=== PATIENT | female | born 1970 | race African-American/Black ===

== ENCOUNTER 2019-04-13 07:19 | Outpatient (CLI) | payer BC ==
--- NOTE | 2019-04-13 09:09 | ULT ---
HEPATIC DOPPLER ULTRASOUND: DATE: 04/13/2019. COMPARISON: None. HISTORY: Abnormal liver function tests. TECHNIQUE: Multiplanar grayscale sonographic imaging of the abdomen obtained. The hepatic and splenic vasculatur e is assessed with color flow and spectral analysis. FINDINGS: Imaged pancreas is unremarkable. The tail of the pancreas is obscured by bowel gas. Imaged IVC and aorta appear within normal limits. The hepatic parenchyma is heterogeneous and echogenic, suggesting hepatocellular disease, such as malcolm atosis. The common bile duct measures 4 mm, within normal limits. The left portal vein, left hepatic vein, middle hepatic vein, right portal vein, right hepatic vein, hepatic artery, main portal vein, splenic artery, and splenic vein are patent and demonstrate appropriate waveforms. The gallbladder demonstrates normal wall thickness with no stones or pericholecystic fluid. Spleen measures 9.8 cm, within normal limits. IMPRESSION: Unremarkable hepatic Doppler ultrasound. Transcribed Date/Time: 04/13/2019 9:16 AM
== END 2019-04-13 07:20 | disposition home or self-care (01) ==
LOC: SCSULT 07:19
PROVIDERS: ATTEND Internal Medicine Gastroenterology
DX: R94.5 Abnormal results of liver function studies (principal); K92.1 Melena; G47.30 Sleep apnea, unspecified
CPT/HCPCS: 76705

== ENCOUNTER 2019-04-13 12:23 | Day surgery (SDC) | payer BC ==
[2019-04-12 12:43] VITALS: BMI 52.9
[2019-04-13] MEDS ORDERED: Midazolam HCl 2 mg/2 ml Vial ONE (13:02)
[2019-04-13] MEDS ORDERED: Fentanyl 100 MCG/2 ML VIAL ONE (13:06)
--- NOTE | 2019-04-13 19:48 | OP ---
DATE OF PROCEDURE: 04/13/2019 PROCEDURE PERFORMED: Colonoscopy. PREPROCEDURE DIAGNOSES: 1. Rectal outlet bleeding. 2. Colon screening. POSTPROCEDURE DIAGNOSES: 1. Exam to cecum; good bowel preparation. 2. Severely redundant transverse colon. 3. No obvious polyp or neoplasm identified. 4. No active bleeding seen. 5. Limited exam of the transverse colon due to finding above. 6. Moderately large external hemorrhoids, not actively bleeding. 7. Solitary medium size sigmoid diverticulum. 8. Otherwise normal colonoscopy. DESCRIPTION OF PROCEDURE: Written informed consent was obtained. The patient was brought to the endoscopy suite. Total intravenous anesthesia was administered by Dr. Matilde Massey. The patient was placed in the left lateral decubitus position. A digital rectal exam was performed that revealed [id number] external hemorrhoids that were not thrombosed nor actively bleeding. A Pentax video colonoscope was inserted through the anal canal and advanced under direct visualization to the cecum. Position in the cecum was verified by identification of the appendiceal orifice and the ileocecal valve. The quality of the bowel preparation was good. Each colon segment was carefully examined as the colonoscope was withdrawn from the cecum. Vascular pattern and haustral folds appeared normal. The transverse colon was severely redundant, which somewhat limited visualization of the transverse colon due to looping. No polyp, neoplasm, or active bleeding site was identified. In the rectum, a retroflexed view demonstrated no internal hemorrhoids. The colon was decompressed as the colonoscope was completely removed from the patient. She was transferred to the Day Stay surgery area for postprocedure monitoring. There were no immediate complications. RECOMMENDATIONS: 1. Resume previous medications. 2. High-fiber diet with recommendation to consume at least 25 to 30 g of fiber daily. 3. Sitz baths t.i.d. p.r.n. 4. Preparation H cream or Analpram HC cream t.i.d. p.r.n. 5. If hemorrhoids continue to bleed, we would recommend surgical consultation. 6. Repeat colonoscopy in 10 years for purposes of colon cancer screening. Job ID: [id number]
== END 2019-04-13 15:00 | disposition home or self-care (01) ==
LOC: SDC 12:23
PROVIDERS: ATTEND Internal Medicine Gastroenterology
DX: K57.31 Diverticulosis of large intestine without perforation or abscess with bleeding (principal); K64.4 Residual hemorrhoidal skin tags; Q43.8 Other specified congenital malformations of intestine; I10 Essential (primary) hypertension; G47.30 Sleep apnea, unspecified; E66.3 Overweight; Z68.42 Body mass index [BMI] 45.0-49.9, adult; Z79.899 Other long term (current) drug therapy; Z91.013 Allergy to seafood; Z91.041 Radiographic dye allergy status; R94.5 Abnormal results of liver function studies; K92.1 Melena
CPT/HCPCS: 76705; J2250; J3010

== ENCOUNTER 2024-07-14 07:48 | Inpatient (IN) | payer BC ==
[2024-07-14 08:13] VITALS: BMI 53.8
[2024-07-14] MEDS ORDERED: Calcium Carbonate 500 MG ChewTAB PO PRN (08:31)
[2024-07-14] MEDS ORDERED: Senokot S 8.6-50 MG TAB PO PRN (08:31)
[2024-07-14] MEDS ORDERED: Ondansetron ODT 4 MG TAB PO PRN (08:35)
[2024-07-14] MEDS ORDERED: hydrALAZINE 20 MG/ML VIAL SLOW IVP PRN (08:45)
[2024-07-14 09:40] LABS: #Basophils Less than 0.03 10x3/uL (0.0-0.2); #Eosinophils Less than 0.03 10x3/uL (0.0-0.7); %Basophils 0.3 % (0.0-1.0); %Eosinophils 0.3 % (0.0-10.0); %Lymphocytes 37.9 % (21.0-51.0); %Monocytes 17.4 % (0.0-10.0); %Neutrophils 43.8 % (42.0-75.0); Hematocrit 37.6 % (36.0-47.0); Hemoglobin 12.4 g/dL (12.0-16.0); Mean Corpuscular Hemoglobin 28.6 pg (27.0-31.0); Mean Corpuscular Volume 86.8 fL (78.0-98.0); Mean Platelet Volume 9.9 fL (7.4-10.4); Platelet Count 195 10x3/uL (130-400); RBC Distribution Width 15.8 % (11.5-14.5); Red Blood Cell (RBC) Count 4.33 mill/uL (4.20-5.40)
[2024-07-14] MEDS: Enoxaparin 40 MG (0.4 mL) SYRINGE SC SCH ×2 (09:58→10:29)
[2024-07-14 09:59] LABS: Anion Gap 14 mmol/L (10-20); BUN (Urea Nitrogen) 10 mg/dL (9.8-20.1); Calc. Creatinine Clearance 221 mL/min (70-130); Carbon Dioxide 29 mmol/L (22-29); Chloride 97 mmol/L (98-107); Estimated GFR 102; Glucose 92 mg/dL (70-105); Potassium 3.6 mmol/L (3.5-5.1); Sodium 136 mmol/L (136-145)
[2024-07-14 10:05] LABS: Troponin I 0.041 ng/mL (< 0.028)
[2024-07-14] MEDS: Gabapentin 300 MG CAP PO SCH ×2 (11:00→20:41)
[2024-07-14] MEDS: Carvedilol 6.25 MG TAB PO SCH ×2 (11:01→16:31)
[2024-07-14] MEDS: Oseltamivir 75 MG CAP PO SCH ×2 (11:02→20:41)
[2024-07-14] MEDS: Hydrochlorothiazide 25 MG TAB PO SCH (11:02)
[2024-07-14] MEDS: Famotidine 20 MG TAB PO SCH ×2 (11:02→20:42)
[2024-07-14] MEDS: Amlodipine 10 MG TAB PO SCH (11:02)
[2024-07-14 11:10] LABS: Influenza A by NAA DETECTED (NotDetected); Influenza B by NAA Not Detected (NotDetected); RSV by NAA Not Detected (NotDetected); SARS-CoV-2 NAA Rapid Test Not Detected (NotDetected)
[2024-07-14] MEDS: FLU (Fluarix Triv) TS24-25(6MOS UP)/PF 45 MCG/0.5 ML Syringe IM ONE (17:29)
[2024-07-14] MEDS: Guaifenesin DM 100-10/5 ML UDCUP PO PRN (20:41)
[2024-07-14] MEDS: Atorvastatin Calcium 40 MG TAB PO SCH (20:41)
[2024-07-14] MEDS: Acetaminophen 325 MG TAB PO PRN (20:42)
[2024-07-15 05:16] LABS: Anion Gap 12 mmol/L (10-20); BUN (Urea Nitrogen) 13 mg/dL (9.8-20.1); Calc. Creatinine Clearance 215 mL/min (70-130); Carbon Dioxide 31 mmol/L (22-29); Cardiac Risk 4.9 (Less than 4.5); Chloride 98 mmol/L (98-107); Cholesterol 162 mg/dl (< 200 Desired); Estimated GFR 99; Glucose 113 mg/dL (70-105); HDL Cholesterol 33 mg/dL (>60 Neg Risk); LDL Cholesterol, Calculated 104 mg/dL; Potassium 3.5 mmol/L (3.5-5.1); Sodium 137 mmol/L (136-145); Triglycerides 125 mg/dL (Less than 150)
[2024-07-15 05:19] LABS: Hematocrit 39.4 % (36.0-47.0); Hemoglobin 12.9 g/dL (12.0-16.0); Mean Corpuscular HGB CONC 32.7 g/dL (32.0-36.0); Mean Corpuscular Volume 85.5 fL (78.0-98.0); Mean Platelet Volume 10.4 fL (7.4-10.4); Platelet Count 207 10x3/uL (130-400); RBC Distribution Width 15.7 % (11.5-14.5); Red Blood Cell (RBC) Count 4.61 mill/uL (4.20-5.40)
[2024-07-15 07:02] LABS: Anisocytosis SLIGHT = 6-15 cells HPF (0-5); Band 5 % (5-11); Eosinophils 1 % (0-10); Lymphocytes 63 % (21-51); Macrocytosis SLIGHT = 6-15 cells HPF (0-5); Monocytes 9 % (0-10); Neutrophil 16 % (42-75); Platelet Adequacy Comment Platelets Normal; Polychromasia SLIGHT = 2-3 cells HPF (0-2); Reactive Lymphocytes 4 % (0-10); Stomatocytes SLIGHT = 2-5 cells HPF (0-1)
[2024-07-15] MEDS: Aspirin 81 mg Enteric Coated Tablet PO SCH (09:38)
[2024-07-15] MEDS: Amlodipine 10 MG TAB PO SCH (09:39)
[2024-07-15] MEDS: Hydrochlorothiazide 25 MG TAB PO SCH (09:39)
[2024-07-15 15:04] VITALS: TEMP 99.3
[2024-07-15 15:56] VITALS: BP 174/94
[2024-07-15] MEDS ORDERED: Baclofen 10 MG TAB PO SCH (21:00)
[2024-07-16] MEDS ORDERED: dilTIAZem CD 240 MG CAP PO SCH (09:00)
[2024-07-16] MEDS ORDERED: CeleCOXIB 100 MG CAP PO SCH (09:00)
[2024-07-16] MEDS ORDERED: Carvedilol 6.25 MG TAB PO SCH (09:00)
== END 2024-07-15 18:24 | disposition home or self-care (01) | DRG 193 ==
LOC: OBS 08:10 → OBSVTOIN 07-15 16:33
PROVIDERS: ADMIT Internal Medicine; ATTEND Family Medicine
DX: J10.1 Influenza due to other identified influenza virus with other respiratory manifestations (principal); I21.A1 Myocardial infarction type 2; I16.1 Hypertensive emergency; Z68.43 Body mass index [BMI] 50.0-59.9, adult; I10 Essential (primary) hypertension; G47.33 Obstructive sleep apnea (adult) (pediatric); R07.89 Other chest pain; E66.01 Morbid (severe) obesity due to excess calories; I35.0 Nonrheumatic aortic (valve) stenosis; Z88.8 Allergy status to other drugs, medicaments and biological substances; Z90.710 Acquired absence of both cervix and uterus; Z79.899 Other long term (current) drug therapy; Z79.82 Long term (current) use of aspirin; B34.9 Viral infection, unspecified; R79.89 Other specified abnormal findings of blood chemistry
CPT/HCPCS: 0241U; 36415; 71045; 80048; 80053; 80061; 83880; 84484; 85025; 87428; 93005; 93010; 93306; 96372; G0378; J1650